=== PATIENT | male | born 1975 | race Caucasian/White ===

== ENCOUNTER 2024-06-13 21:01 | Inpatient (IN) | payer OTHER ==
[2024-06-13 22:29] LABS: HEMATOCRIT 36.9 % (35.4-49); HEMOGLOBIN 12.1 G/dL (11.7-16.9); MCHC 32.9 g/dl (32.0-35.9); MEAN CELL VOLUME 91.4 fl (80-96); MEAN PLT VOLUME 9.5 fl (7.5-11.1); PLATELET COUNT 239.4 10^3/uL (134-434); RBC 4.04 10^6/uL (4.00-5.60); RDW 14.1 % (11.9-15.9); WHITE BLOOD COUNT 9.5 10^3/uL (4.0-10.8)
[2024-06-13 22:45] LABS: ALBUMIN 3.6 g/dl (3.4-5.0); ALK PHOS 76 U/L (45-117); ANION GAP 8 mmol/L (4-13); BILIRUBIN,TOTAL 0.9 mg/dl (0.2-1); CALCIUM 8.5 mg/dl (8.5-10.1); CHLORIDE 105 mmol/L (98-107); CO2 23 mmol/L (21-32); GLUCOSE,RANDOM 100 mg/dl (74-106); POTASSIUM 3.6 mmol/L (3.5-5.1); SGOT/AST 26 U/L (15-37); SGPT/ALT 13 U/L (7-52); SODIUM 136 mmol/L (136-145); TOT PROT 6.5 g/dl (6.4-8.2)
[2024-06-14] MEDS ORDERED: ENOXAPARIN NA (PORCINE) 100 MG/1 ML DISP.SYRIN SQ ONE (00:52)
[2024-06-14] MEDS: ENOXAPARIN NA (PORCINE) 100 MG/1 ML DISP.SYRIN SQ ONE (00:57)
[2024-06-14 01:35] LABS: INR 1.16 (0.83-1.09); PROTHROMBIN TIME (PATIENT) 13.3 SEC (9.7-13.0)
[2024-06-14 01:37] LABS: ACTIVATED PTT 32.2 SECONDS (25.2-36.5)
[2024-06-14 06:16] LABS: ARTERIAL BLD GAS O2 SATURATION 94.9 % (95-98); ARTERIAL BLOOD GAS BASE EXCESS -1.4 mmol/L (-2-2); ARTERIAL BLOOD GAS PO2 73.1 mmHg (80-100); ARTERIAL BLOOD GAS pH 7.406 (7.350-7.450)
[2024-06-14 06:17] LABS: ALLENS TEST POSITIVE
[2024-06-14] MEDS ORDERED: ACETAMINOPHEN 500 MG TABLET (FP) PO PRN (06:34)
[2024-06-14] MEDS: LACTATED RINGERS SOLUTION 1,000 ML/1,000 ML INFUS.BAG IV SCH (07:10)
[2024-06-14] MEDS: ENOXAPARIN NA (PORCINE) 60 MG/0.6 ML DISP.SYRIN SQ SCH (09:01)
[2024-06-14] MEDS: MUPIROCIN 2% TOPICAL OINTMENT FOR DECOLONIZATION NS SCH (09:01)
[2024-06-14] MEDS: ACETAMINOPHEN 1000 MG/100 ML BAG IVPB PRN (09:02)
[2024-06-14] MEDS: NICOTINE 14 MG/24 HOURS TOPICAL PATCH TD SCH (09:08)
[2024-06-14] MEDS: ENOXAPARIN NA (PORCINE) 60 MG/0.6 ML DISP.SYRIN SQ ONE (10:01)
[2024-06-14] MEDS ORDERED: REMDESIVIR 100 MG in SODIUM CHLORIDE 270 ML IVPB ONE (10:27)
[2024-06-14] MEDS: DEXAMETHASONE SOD PHOSPHATE 4 MG/1 ML VIAL IVPUSH SCH (11:32)
[2024-06-14] MEDS: BUPRENORPHINE/NALOXONE 8 MG/2 MG FILM PACKET SL ONE (12:30)
[2024-06-14] MEDS: REMDESIVIR 200 MG in SODIUM CHLORIDE 250 ML IVPB ONE (13:37)
[2024-06-14] MEDS ORDERED: VASopressin 20 UNITS/ML VIAL IV ONE (18:07)
[2024-06-14] MEDS: ENOXAPARIN NA (PORCINE) 120 MG/0.8 ML DISP.SYRIN SQ SCH (21:11)
[2024-06-14] MEDS: BUPRENORPHINE/NALOXONE 2 MG/0.5 MG FILM PACKET SL SCH (21:12)
[2024-06-14] MEDS: CHLORHEXIDINE GLUCONATE 4% CLEANSER FOR DECOLONIZATION TP SCH (21:13)
[2024-06-15 08:05] LABS: BASO % 0.2 % (0-2.0); EOS % 0.2 % (0-4.5); HEMOGLOBIN 13.7 GM/dL (11.7-16.9); LYMPH % 5.1 % (8-40); MCH 30.8 pg (25.7-33.7); MCHC 34.2 g/dl (32.0-35.9); MEAN CELL VOLUME 89.9 fl (80-96); MEAN PLT VOLUME 9.8 fl (7.5-11.1); MONO % 5.2 % (3.8-10.2); NEUT % 89.3 % (42.8-82.8); PLATELET COUNT 262 10^3/uL (134-434); RBC 4.45 M/mm3 (4.00-5.60); RDW 14.4 % (11.9-15.9); WHITE BLOOD COUNT 9.8 K/mm3 (4.0-10.0)
[2024-06-15 08:05] LABS: HEMATOCRIT 40.7 % (35.4-49); HEMOGLOBIN 13.9 GM/dL (11.7-16.9); MCH 30.9 pg (25.7-33.7); MCHC 34.1 g/dl (32.0-35.9); MEAN CELL VOLUME 90.7 fl (80-96); MEAN PLT VOLUME 9.8 fl (7.5-11.1); PLATELET COUNT 276 10^3/uL (134-434); RBC 4.48 M/mm3 (4.00-5.60); RDW 14.2 % (11.9-15.9)
[2024-06-15 08:12] LABS: CHLORIDE 106 mmol/L (98-107); POTASSIUM 4.5 mmol/L (3.5-5.1); SODIUM 140 mmol/L (136-145)
[2024-06-15 08:13] LABS: INR 1.13 (0.83-1.09)
[2024-06-15 08:14] LABS: ACTIVATED PTT 36.5 SECONDS (25.2-36.5)
[2024-06-15 08:16] LABS: ALBUMIN 2.8 g/dl (3.4-5.0); ANION GAP 8 mmol/L (4-13); CALCIUM 8.6 mg/dL (8.5-10.1); CO2 25 mmol/L (21-32)
[2024-06-15 08:17] LABS: BLOOD UREA NITROGEN 15.2 mg/dL (7-18); GLUCOSE,RANDOM 89 mg/dL (74-106); MAGNESIUM 2.2 mg/dL (1.8-2.4)
[2024-06-15 08:19] LABS: SGOT/AST 21 U/L (15-37); SGPT/ALT 19 U/L (13-61)
[2024-06-15 08:20] LABS: CREATININE 0.8 mg/dL (0.55-1.3); PHOSPHOROUS 3.2 mg/dL (2.5-4.9)
[2024-06-15 08:21] LABS: ALK PHOS 86 U/L (45-117); BILIRUBIN,TOTAL 0.3 mg/dL (0.2-1); TOT PROT 6.6 g/dl (6.4-8.2)
[2024-06-15 08:22] LABS: N-TERMINAL BNP 791.2 pg/ml (5-125)
[2024-06-15] MEDS: REMDESIVIR 100 MG in SODIUM CHLORIDE 250 ML IVPB SCH (11:38)
[2024-06-15 11:54] LABS: URINE APPEARANCE CLEAR; URINE BILIRUBIN NEGATIVE (NEGATIVE); URINE COLOR YELLOW; URINE GLUCOSE (UA) NEGATIVE (NEGATIVE); URINE KETONE 1+ (NEGATIVE); URINE LEUK ESTERASE NEGATIVE (NEGATIVE); URINE NITRITE NEGATIVE (NEGATIVE); URINE PROTEIN TRACE (NEGATIVE)
[2024-06-15 12:45] VITALS: BMI 30.2
[2024-06-15 16:20] LABS: COCAINE, UR NEGATIVE (NEGATIVE); URINE BARBITURATES NEGATIVE (NEGATIVE)
[2024-06-15 16:21] LABS: METHADONE, UR NEGATIVE (NEGATIVE); PHENCYCLIDINE,URINE NEGATIVE (NEGATIVE)
[2024-06-15 16:29] LABS: OPIATES, URI NEGATIVE (NEGATIVE); URINE AMPHETAMINES POSITIVE (NEGATIVE); URINE BENZODIAZEPINES NEGATIVE (NEGATIVE)
[2024-06-15] MEDS: APIXABAN 5 MG TABLET PO SCH (21:49)
[2024-06-16 08:01] LABS: BASO % 0.2 % (0-2.0); EOS % 0.8 % (0-4.5); HEMOGLOBIN 11.9 GM/dL (11.7-16.9); LYMPH % 19.5 % (8-40); MCH 30.9 pg (25.7-33.7); MCHC 34.1 g/dl (32.0-35.9); MEAN CELL VOLUME 90.6 fl (80-96); MEAN PLT VOLUME 9.2 fl (7.5-11.1); MONO % 16.5 % (3.8-10.2); PLATELET COUNT 235 10^3/uL (134-434); RBC 3.87 M/mm3 (4.00-5.60); RDW 13.9 % (11.9-15.9); WHITE BLOOD COUNT 5.1 K/mm3 (4.0-10.0)
[2024-06-16 08:15] LABS: POTASSIUM 3.9 mmol/L (3.5-5.1)
[2024-06-16 08:20] LABS: CALCIUM 8.3 mg/dL (8.5-10.1)
[2024-06-16 08:21] LABS: MAGNESIUM 2.1 mg/dL (1.8-2.4)
[2024-06-16 08:24] LABS: CREATININE 0.8 mg/dL (0.55-1.3)
[2024-06-16 15:10] VITALS: TEMP 97.8
[2024-06-16 20:53] VITALS: BP 115/87
[2024-06-16] MEDS: POLYETHYLENE GLYCOL (HEALTHYLAX) 3350 17 GM PACKET PO SCH (21:51)
[2024-06-16 23:24] VITALS: PULSE 60; RESP 22
[2024-06-17 08:27] LABS: BASO % 0.4 % (0-2.0); EOS % 0.7 % (0-4.5); HEMATOCRIT 38.5 % (35.4-49); HEMOGLOBIN 13.1 GM/dL (11.7-16.9); LYMPH % 17.1 % (8-40); MCH 30.6 pg (25.7-33.7); MEAN CELL VOLUME 90.1 fl (80-96); MEAN PLT VOLUME 8.7 fl (7.5-11.1); MONO % 11.4 % (3.8-10.2); NEUT % 70.4 % (42.8-82.8); PLATELET COUNT 299 10^3/uL (134-434); RBC 4.27 M/mm3 (4.00-5.60); RDW 13.6 % (11.9-15.9); WHITE BLOOD COUNT 6.5 K/mm3 (4.0-10.0)
[2024-06-17 08:45] LABS: PHOSPHOROUS 3.9 mg/dL (2.5-4.9)
[2024-06-17 08:52] LABS: POTASSIUM 3.4 mmol/L (3.5-5.1)
[2024-06-17 08:58] LABS: ALBUMIN 2.9 g/dl (3.4-5.0); BLOOD UREA NITROGEN 16.1 mg/dL (7-18); CALCIUM 8.4 mg/dL (8.5-10.1)
[2024-06-17 09:01] LABS: BILIRUBIN,TOTAL 0.3 mg/dL (0.2-1); TOT PROT 6.7 g/dl (6.4-8.2)
[2024-06-22] MEDS ORDERED: APIXABAN 5 MG TABLET PO SCH (22:00)
[2024-06-23] MEDS ORDERED: APIXABAN 5 MG TABLET PO SCH (10:00)
== END 2024-06-17 12:30 | disposition home or self-care (01) | DRG 134 ==
LOC: FER 21:01 → JICU 06-14 05:00
PROVIDERS: ADMIT Internal Medicine Pulmonary Disease; ATTEND Nurse Practitioner
PROC: XW033E5 Introduction of Remdesivir Anti-infective into Peripheral Vein, Percutaneous Approach, New Technology Group 5 (ICD-10-PCS; principal; 2024-06-14)
DX: I26.99 Other pulmonary embolism without acute cor pulmonale (principal); M54.9 Dorsalgia, unspecified; U07.1 COVID-19; F11.20 Opioid dependence, uncomplicated; I36.1 Nonrheumatic tricuspid (valve) insufficiency; R09.02 Hypoxemia
CPT/HCPCS: 36415; 36600; 71046-TC-FY; 71275-TC; 80048; 80053; 80307; 81003; 81241; 82550; 82553; 82803; 82962; 83036; 83735; 83880; 84100; 84436; 84443; 84484; 85025; 85027; 85300; 85303; 85379; 85610; 85730; 86850; 86900; 86901; 87635; 93005; 93010; 93306-TC; 93970-TC; 94010; 99285-25; J0131; J0248; Q9967

== ENCOUNTER 2024-06-25 20:06 | Emergency (ER) | payer OTHER ==
[2024-06-25 20:31] VITALS: BP 118/77; PULSE 93; RESP 20; TEMP 97.9; BMI 32.1
[2024-06-25] MEDS: APIXABAN 5 MG TABLET PO STA (20:50)
== END 2024-06-25 20:56 | disposition home or self-care (01) ==
LOC: FER 20:06
DX: I27.82 Chronic pulmonary embolism (principal); Z79.01 Long term (current) use of anticoagulants
CPT/HCPCS: 99283-25